=== PATIENT | male | born 1970 | race Two or more races ===

== ENCOUNTER 2022-04-17 06:14 | Emergency (ER) | payer MEDICAID ==
[~2022-04-17] VITALS: Ht 177.8 cm; Wt 99.8 kg
[2022-04-17 06:44] VITALS: BP 137/87
[2022-04-17] MEDS ORDERED: ACYC-161 PO (06:59)
[2022-04-17] MEDS ORDERED: LIDO2SOL23 MT (06:59)
== END 2022-04-17 07:13 | disposition home or self-care (01) ==
LOC: ER 06:14
DX: B00.9 Herpesviral infection, unspecified (principal); I10 Essential (primary) hypertension; E78.5 Hyperlipidemia, unspecified; Z79.899 Other long term (current) drug therapy